=== PATIENT | male | born 1965 | race Caucasian/White ===

== ENCOUNTER 2021-11-04 15:00 | Emergency (ER) | payer MEDICARE, MEDICAID ==
[~2021-11-04] VITALS: Ht 175.3 cm; Wt 100.0 kg
[2021-11-04 16:55] LABS: CLARITY,URINE TURBID (Clear); COLOR,URINE RED (Yellow); GLUCOSE, URINE NEGATIVE (Neg); KETONES,URINE NEGATIVE (Neg); LEUKOCYTE ESTERASE ,URINE LARGE (Neg); NITRITES, URINE NEGATIVE (Neg); OCCULT BLOOD,URINE LARGE (Neg); PH,URINE 5.5 (4.8-8.0); PROTEIN,URINE 100 mg/dl (Neg); UROBILINOGEN,URINE 0.2 E.U/dL (0.2-1.0)
[2021-11-04 17:04] LABS: UA COLLECTION TYPE FOLEY CATH
[2021-11-04 17:05] LABS: WBC,URINE TNTC /HPF (0-4)
[2021-11-04 17:06] LABS: BACTERIA,URINE 1+ /HPF (Neg); MUCUS STRANDS NONE SEEN /LPF (Neg); RBC,URINE 20-50 /HPF (0-2); SQUAMOUS EPITHELIAL CELL,UR FEW /LPF (FEW); WBC CLUMPS,URINE MANY /HPF (NEGATIVE)
[2021-11-04] MEDS ORDERED: cephalexin 500mg capsule PO ONE (17:10)
[2021-11-04] MEDS ORDERED: cephalexin 250mg capsule PO ONE (17:10)
[2021-11-04] MEDS ORDERED: CEPH-585 PO (17:12)
[2021-11-04 17:38] VITALS: BP 137/72
== END 2021-11-04 17:40 | disposition home or self-care (01) ==
LOC: ER 15:02
DX: T83.098A Other mechanical complication of other urinary catheter, initial encounter (principal); N39.0 Urinary tract infection, site not specified; E11.9 Type 2 diabetes mellitus without complications; Z79.899 Other long term (current) drug therapy; R31.9 Hematuria, unspecified
CPT/HCPCS: 51702; 81001; 87088; 99284